=== PATIENT | male | born 1975 | race Asian ===

== ENCOUNTER 2017-01-15 14:49 | Observation (INO) | payer OTHER ==
[~2017-01-15] VITALS: Ht 180.3 cm; Wt 82.6 kg
--- NOTE | 2017-01-15 14:55 | NUR ---
PT IN BR WHEN CALLED TO TRIAGE
--- NOTE | 2017-01-15 15:08 | ED GI/GU/ABDOMINAL COMPLAINT ---
History of Present Illness General Chief Complaint: General Adult Stated Complaint: PER GIRLFRIEND, "HE ISNT FEELING WELL" Source: patient, family Exam Limitations: clinical condition Allergies Coded Allergies: No Known Allergies (01/15/17) Reconcile Medications No Known Home Medications Triage Note: PT C/O ABDOMINAL PAIN WITH N/V ALL MORNING. PT STATES HE THOUGHT IT MAY BE FOOD POISONING BUT HE CAN'T THINK OF ANYTHING FUNNY THAT HE ATE. Triage Nurses Notes Reviewed? yes Onset: Abrupt Duration: hour(s):, constant, continues in ED Timing: recent history Quality/Severity: moderate, sharpness, severe Location: epigastric Radiation: no radiation No Modifying Factors: none HPI: 41-year-old male comes into emergency room with sudden onset nausea vomiting and abdominal pain that began this morning. No diarrhea at this time. Symptoms were sudden onset. Patient has vomited over 9 times. Patient not able to keep any liquids down. Sweaty. Chills. Denies any prior history of this. No other sick contacts. Patient ate out with family members last night. No one else is sick. They had food and then he also had Basilio's at one point. (ZHEN VANN) Vital Signs & Intake/Output Vital Signs & Intake/Output Vital Signs Date Time Temp Pulse Resp B/P Pulse O2 O2 Flow FiO2 Ox Delivery Rate 01/15 1704 98.3 95 16 143/63 94 Room Air 01/15 1647 Room Air 01/15 1459 98.2 89 20 173/89 99 Room Air Past History Travel History Traveled to [place] past 21 day No Medical History Any Pertinent Medical History? none Surgical History Surgical History: non-contributory Psychosocial History What is your primary language Prydeinig Tobacco Use: Current Daily Use Daily Tobacco Use Amount/Type: => 5 Cigarettes daily ETOH Use: occasional use Illicit Drug Use: denies illicit drug use Family History Hx Contributory? No (ZHEN VANN) Review of Systems Review of Systems Constitutional: Reports: see HPI. EENTM: Reports: no symptoms. Respiratory: Reports: no symptoms. Cardiovascular: Reports: no symptoms. GI: Reports: see HPI. Genitourinary: Reports: no symptoms. Musculoskeletal: Reports: no symptoms. Skin: Reports: no symptoms. Neurological/Psychological: Reports: no symptoms. Hematologic/Endocrine: Reports: no symptoms. Immunologic/Allergic: Reports: no symptoms. All Other Systems: Reviewed and Negative (ZHEN VANN) Physical Exam Physical Exam General Appearance: moderate distress, actively vomiting Head: atraumatic, normal appearance Eyes: Bilateral: normal appearance, EOMI. Ears, Nose, Throat, Mouth: hearing grossly normal, moist mucous membrane Neck: normal inspection Respiratory: normal breath sounds, no respiratory distress Cardiovascular: regular rate/rhythm Gastrointestinal: soft, tenderness Back: normal inspection Extremities: normal range of motion Neurologic/Psych: awake, alert, oriented x 3, normal gait, normal mood/affect Skin: intact, normal color Core Measures ACS in differential dx? No Severe Sepsis Present: No Septic Shock Present: No (ZHEN VANN) Progress Differential Diagnosis: appendicitis, biliary colic, bowel obstruction, cholecystitis, diverticulitis, gastritis, hepatitis, pancreatitis, peptic ulcer, PUD/GERD, perforated viscous, SBO, ureterolithiasis, urinary retention, urethritis, UTI/pyelo Diagnostic Imaging: Viewed by Me: Ultrasound. Discussed w/RAD: Ultrasound. Radiology Impression: EXAM TYPE: US - US-LIMITED ABDOMEN EXAMINATION: US ABDOMEN LIMITED CLINICAL INFORMATION: Abdominal pain and vomiting. COMPARISON: None TECHNIQUE: Real-time imaging of the right upper quadrant abdominal viscera. FINDINGS: PANCREAS: Visualized portions are unremarkable, with partial bowel gas obscuration. LIVER: Normal. The liver demonstrates normal size, contour and echogenicity. No focal lesion or intrahepatic biliary duct dilatation. GALLBLADDER: Multiple shadowing immobile gallstones are demonstrated. No significant gallbladder wall thickening or pericholecystic fluid. There is tenderness in the area of the gallbladder upon sonography. COMMON BILE DUCT: Mildly prominent in caliber measuring 0.7 cm in diameter. RIGHT KIDNEY: There are a couple subcentimeter echogenic calculi within the right kidney. No hydronephrosis. There is a 0.9 cm cyst in the lower pole of the right kidney without suspicious features (favor Bosniak 1). The kidney measures 10.5 cm in maximum dimension. FREE FLUID: None. IMPRESSION: 1. Cholelithiasis. No evidence of significant gallbladder wall thickening. However, given tenderness in the area of gallbladder upon sonography, close clinical correlation for symptoms of cholecystitis is recommended. Consider hepatobiliary nuclear scintigraphy for further evaluation as clinically warranted. 2. Mild extrahepatic biliary ductal dilatation at 0.7 cm. 3. Subcentimeter right renal calculi without hydronephrosis. DICTATED BY: JUDITH PHILLIPS MD DATE/TIME DICTATED:01/15/17 / 1623 DEPOSIT REFUND CLERK:PRAVEEN Initial ED EKG: none (ZHEN VANN) Plan of Care: Orders Procedure Date/time Status BASIC ELECTROLYTES PLUS BUN&CR 01/17 0600 Active Nothing by Mouth 01/16 B Active PROTHROMBIN TIME 01/16 06 Active CBC WITHOUT DIFFERENTIAL 01/[address] in observation 01/15 182 Active Pathway - chart 01/15 1815 Active Patient Data 01/15 1815 Active Code Status 01/15 181 Active Intake & Output 01/15 1512 Active LIPASE 01/15 1507 Complete COMPREHENSIVE METABOLIC PANEL 01/15 1507 Complete CBC WITHOUT DIFFERENTIAL 01/15 1507 Complete AMYLASE 01/15 1507 Complete VTE Mechanical Prophylaxis 01/15 UNK Active Vital Signs 01/15 UNK Active Activity/Ambulation 01/15 UNK Active Current Medications Sig/Sandy Start time Last Medication Dose Stop Time Status Admin Acetaminophen 1,000 MG Q6P PRN 01/15 181 AC (Ofirmev) N/A 1 UNIT (No Carrier) Dextrose/Sodium 1,000 ML .Q10H 01/15 181 AC Chloride (D5-Normal Saline) Morphine Sulfate 2 MG Q2P PRN 01/15 1815 AC (Morphine) Ondansetron HCl 4 MG Q8P PRN 01/15 181 AC (Zofran) Laboratory Tests 01/15/17 1517: Anion Gap 12, Estimated GFR > 60, BUN/Creatinine Ratio 18.6, Glucose 137 H, Calcium 9.6, Total Bilirubin 0.6, AST 24, ALT 53, Alkaline Phosphatase 68, Total Protein 6.7, Albumin 3.6, Globulin 3.1, Albumin/Globulin Ratio 1.2, Amylase 56, Lipase 136, CBC w Diff NO MAN DIFF REQ, RBC 4.94, MCV 87.2, MCH 28.8, RDW 12.7, MPV 7.2 L, Gran % 88.2 H, Lymphocytes % 8.7 L, Monocytes % 2.7, Eosinophils % 0.1, Basophils % 0.3, Absolute Granulocytes 10.4 H, Absolute Lymphocytes 1.0 L , Absolute Monocytes 0.3, Absolute Eosinophils 0, Absolute Basophils 0, PUBS MCHC 33.0 Departure Departure Disposition: STILL A PATIENT Condition: Stable Clinical Impression Primary Impression: Cholecystitis Departure Forms: Customer Survey General Discharge Information Prescriptions: Current Visit Scripts No Known Home Medications Admission Note Documentation of Exam: Documentation of any treatments & extenuating circumstances including Concerns Regarding Discharge (functional status, medication knowledge or non-compliance, living conditions, etc.) that warrant an admission rather than observation: Patient has positive Brito's. Small white count. Likely early cholecystitis. Symptomatic gallstones and still having pain after IV narcotics. Patient will be admitted for surgery tomorrow to remove gallbladder. Patient will require IV antibiotics. IV fluids. IV pain control. Observation Note Spoke With: FRANK TURNER MD Physician Advisor Notified: MARTY GUERRERO DO Place Patient In: Non-ED OBS Care Area Rationale for Observation: My rational for observation is as follows . Patient has positive Brito's. Small white count. Likely early cholecystitis. Symptomatic gallstones and still having pain after IV narcotics. Patient will be admitted for surgery tomorrow to remove gallbladder. Patient will require IV antibiotics. IV fluids. IV pain control. Patient may go home tomorrow after surgery if there are no complications. (ZHEN VANN) PA/CUSTOM SHOP WORKER Co-Sign Statement Statement: ED Attending supervision documentation- [] I saw and evaluated the patient. I have also reviewed all the pertinent lab results and diagnostic results. I agree with the findings and the plan of care as documented in the PA's/CUSTOM SHOP WORKER's documentation. [x] I have reviewed the ED Record and agree with the PA's/CUSTOM SHOP WORKER's documentation. [] Additions or exceptions (if any) to the PAs/CUSTOM SHOP WORKER's note and plan are summarized below: [] (KENDALL SWEENEY,MARTY Lim)
--- NOTE | 2017-01-15 15:09 | NUR ---
RECIEVED TO ROOM 18. PT VOMITING. ZHEN DANGELO IN TO SEE PT. [place] IVF BOLUS STARTED
--- NOTE | 2017-01-15 15:13 | NUR ---
REPORTS FLU + ABOUT 2 WEEKS AGO. ATE [facility] LAST NIGHT AND HAS BEEN VOMITING SINCE THIS AM, NO BLOOD NOTED TO [facility]ES[facility]
--- NOTE | 2017-01-15 15:22 | NUR ---
BLOOD DRAWN AND SENT TO LAB. SST,LAV,BANUELOS,BLUE
[2017-01-15 15:28] LABS: ABSOLUTE BASOPHIL COUNT 0 /CUMM (0.0-0.2); ABSOLUTE EOSINOPHIL COUNT 0 /CUMM (0.0-0.7); ABSOLUTE GRANULOCYTE CT 10.4 /CUMM (1.4-6.5); ABSOLUTE MONOCYTE COUNT 0.3 /CUMM (0.10-0.60); BASOPHIL % 0.3 % (0.0-2.0); EOSINOPHIL % 0.1 % (0-5); GRANULOCYTE % 88.2 % (42.2-75.2); MEAN CORPUSCULAR HGB 28.8 PG (27.0-31.0); MEAN CORPUSCULAR VOLUME 87.2 FL (80.0-94.0); MEAN PLATELET VOLUME 7.2 FL (7.4-10.4); PLATELET COUNT 292 /CUMM (130-400); RBC DISTRIBUTION WIDTH 12.7 % (11.5-14.5); RED BLOOD CELL CT 4.94 /CUMM (4.70-6.10)
--- NOTE | 2017-01-15 15:34 | NUR ---
MED WITH BENTYL IM ORDERED, BLANKET GIVEN FOR COMFORT. FAMILY AT BEDSIDE.
[2017-01-15 15:47] LABS: WHITE BLOOD CELL COUNT 11.8 /CUMM (4.8-10.8)
--- NOTE | 2017-01-15 16:35 | ULTRASOUND REPORT ---
EXAMINATION: US ABDOMEN LIMITED CLINICAL INFORMATION: Abdominal pain and vomiting. COMPARISON: None TECHNIQUE: Real-time imaging of the right upper quadrant abdominal viscera. FINDINGS: PANCREAS: Visualized portions are unremarkable, with partial bowel gas obscuration. LIVER: Normal. The liver demonstrates normal size, contour and echogenicity. No focal lesion or intrahepatic biliary duct dilatation. GALLBLADDER: Multiple shadowing immobile gallstones are demonstrated. No significant gallbladder wall thickening or pericholecystic fluid. There is tenderness in the area of the gallbladder upon sonography. COMMON BILE DUCT: Mildly prominent in caliber measuring 0.7 cm in diameter. RIGHT KIDNEY: There are a couple subcentimeter echogenic calculi within the right kidney. No hydronephrosis. There is a 0.9 cm cyst in the lower pole of the right kidney without suspicious features (favor Bosniak 1). The kidney measures 10.5 cm in maximum dimension. FREE FLUID: None. IMPRESSION: 1. Cholelithiasis. No evidence of significant gallbladder wall thickening. However, given tenderness in the area of gallbladder upon sonography, close clinical correlation for symptoms of cholecystitis is recommended. Consider hepatobiliary nuclear scintigraphy for further evaluation as clinically warranted. 2. Mild extrahepatic biliary ductal dilatation at 0.7 cm. 3. Subcentimeter right renal calculi without hydronephrosis.
--- NOTE | 2017-01-15 16:43 | NUR ---
NO FURTHER VOMITING. PT STATES HE FEELS WEAK. SECOND LITER OF IVF BOLUS STARTED. PT LAYING QUIETLY WITH EYES CLOSED ON STRETCHER
--- NOTE | 2017-01-15 17:03 | NUR ---
PT COMPLAINING OF DIFFUSE ABDOMINAL PAIN 10 OUT OF 10. GIVEN MORHINE 4MG IVP
--- NOTE | 2017-01-15 18:17 | Admission Core Measures ---
Admission Lab Results I reviewed the following labs: Laboratory Tests 01/15 1517 Chemistry Sodium (137 - 145 mmol/L) 141 Potassium (3.5 - 5.1 mmol/L) 3.7 Chloride (98 - 107 mmol/L) 103 Carbon Dioxide (22 - 30 mmol/L) 26 Anion Gap (5 - 16) 12 BUN (9 - 20 mg/dL) 13 Creatinine (0.7 - 1.2 mg/dL) 0.7 Estimated GFR (>60 ml/min) > 60 BUN/Creatinine Ratio (7 - 25 %) 18.6 Glucose (65 - 99 mg/dL) 137 H Calcium (8.4 - 10.2 mg/dL) 9.6 Total Bilirubin (0.2 - 1.3 mg/dL) 0.6 AST (17 - 59 U/L) 24 ALT (21 - 72 U/L) 53 Alkaline Phosphatase (< 127 U/L) 68 Total Protein (6.3 - 8.2 g/dL) 6.7 Albumin (3.5 - 5.0 g/dL) 3.6 Globulin (1.9 - 4.2 gm/dL) 3.1 Albumin/Globulin Ratio (1.1 - 2.2 %) 1.2 Amylase (30 - 110 U/L) 56 Lipase (23 - 300 U/L) 136 Hematology CBC w Diff NO MAN DIFF REQ WBC (4.8 - 10.8 /CUMM) 11.8 H RBC (4.70 - 6.10 /CUMM) 4.94 Hgb (14.0 - 18.0 G/DL) 14.2 Hct (42 - 52 %) 43.0 MCV (80.0 - 94.0 FL) 87.2 MCH (27.0 - 31.0 PG) 28.8 RDW (11.5 - 14.5 %) 12.7 Plt Count (130 - 400 /CUMM) 292 MPV (7.4 - 10.4 FL) 7.2 L Gran % (42.2 - 75.2 %) 88.2 H Lymphocytes % (20.5 - 51.1 %) 8.7 L Monocytes % (1.7 - 9.3 %) 2.7 Eosinophils % (0 - 5 %) 0.1 Basophils % (0.0 - 2.0 %) 0.3 Absolute Granulocytes (1.4 - 6.5 /CUMM) 10.4 H Absolute Lymphocytes (1.2 - 3.4 /CUMM) 1.0 L Absolute Monocytes (0.10 - 0.60 /CUMM) 0.3 Absolute Eosinophils (0.0 - 0.7 /CUMM) 0 Absolute Basophils (0.0 - 0.2 /CUMM) 0 PUBS MCHC (33.0 - 37.0 G/DL) 33.0 Admission Meds I reviewed the following Meds: Current Medications Sig/Sandy Start time Last Medication Dose Stop Time Status Admin Acetaminophen 1,000 MG Q6P PRN 01/15 181 UNVr (Ofirmev) N/A 1 UNIT (No Carrier) Ampicillin Sodium/ 3,000 MG Q6 01/15 181 UNVr Sulbactam Sodium (Unasyn) Sodium Chloride 100 ML (Normal Saline 0.9%) Dextrose/Sodium 1,000 ML .Q10H 01/15 181 UNVr Chloride (D5-Normal Saline) Morphine Sulfate 2 MG Q2P PRN 01/15 181 UNVr (Morphine) Ondansetron HCl 4 MG Q8P PRN 01/15 181 UNVr (Zofran) Acute Coronary Syndrome Inclusion Criteria ACS Diagnosis No Inpatient Core Measures LDL Reminder: If No, please order W/I first 24hr of stay Congestive Heart Failure Inclusion Criteria CHF Diagnosis No Cerebrovascular accident Inclusion Criteria CVA/TIA Diagnosis No Inpatient Core Measures Bedside Swallow Eval Reminder: If BSE failed, place ST order Antithrombotic Reminder: Order Antithrombotic Medication by end of day 2 Antithrombotic Reminder: Document Reason Antithrombotic Not ordered by end of day 2 AFIB/Flutter Reminder: If Present, add to problem list AFIB/Flutter Reminder: Order Anticoag Medication for pts with AFIB/Flutter Atherosclerosis Reminder: If Present, add to problem list LDL Reminder: If No, please order W/I first 24hr of stay PT Order Reminder: If No, please order Venous thromboembolism Inpatient Core Measures VTE Risk Factors: Age > 40 VTE Prophylaxis Ordered Inpt Mech & Pharm No Mech VTE prophylaxis d/t No contraindications No VTE Pharm Prophylaxis d/t No contraindications Inclusion Criteria - Per Current guidelines, there needs to be overlap - treatment for the first 5 days of Warfarin therapy. - Parenteral Anticoagulation (IV or SC) needs to be - given along with Warfarin therapy. VTE Diagnosis No VTE Type NONE VTE Confirmed by (Test) NONE Problem List As ranked by this Provider includes Assessment & Plan 1. Cholelithiasis HOME MEDS Home Med List No Known Home Medications
--- NOTE | 2017-01-15 18:20 | History & Physical Pre-Op ---
LUIS ENRIQUE DAVE 01/15/17 1818: General Information and HPI MD Statement: I have seen and personally examined AUNG PICKENS and documented this H&P. The patient is a 41 year old M who presented with a patient stated chief complaint of [EPIGASTRIC, RIGHT UPPER QUADRANT PAIN]. Source of Information: patient, family History of Present Illness: Patient presents to emergency department with complaints of acute onset of abdominal pain primarily in the epigastric region and right upper quadrant. This discomfort was accompanied by several bouts of emesis. This is his first experience with these symptoms. He did mention that two weeks ago he had the flu. He denies diarrhea. He denies chest pain. Allergies/Medications Allergies: Coded Allergies: No Known Allergies (01/15/17) Home Med list No Known Home Medications Past History Surgical History Pertinent Surgical History: non-contributory Past Family/Social History Psychosocial History ETOH Use: occasional use Illicit Drug Use: denies illicit drug use Exam & Diagnostic Data Last 24 Hrs of Vital Signs/I&O Vital Signs Date Time Temp Pulse Resp B/P Pulse O2 O2 Flow FiO2 Ox Delivery Rate 01/15 1704 98.3 95 16 143/63 94 Room Air 01/15 1647 Room Air 01/15 1459 98.2 89 20 173/89 99 Room Air Intake & Output 01/15 1600 01/15 0800 01/15 0000 Intake Total 1000 Output Total Balance 1000 Intake, IV 1000 Patient 185 lb Weight Physical Exam: General Appearance: no acute distress, not currently vomitting Head: atraumatic, normal appearance Eyes: no scleral icteric Bilateral: normal appearance, EOMI. Ears, Nose, Throat, Mouth: hearing grossly normal, moist mucous membrane Neck: normal inspection Respiratory: normal breath sounds, no respiratory distress Cardiovascular: regular rate/rhythm Gastrointestinal: soft, tenderness with deep palpation epigastric and right upper quadrant Back: normal inspection Extremities: normal range of motion Neurologic/Psych: awake, alert, oriented x 3, normal gait, normal mood/affect Skin: intact, normal color, no jaundice Last 24 Hrs of Labs/Antolin: Laboratory Tests 01/15/17 1517: Anion Gap 12, Estimated GFR > 60, BUN/Creatinine Ratio 18.6, Glucose 137 H, Calcium 9.6, Total Bilirubin 0.6, AST 24, ALT 53, Alkaline Phosphatase 68, Total Protein 6.7, Albumin 3.6, Globulin 3.1, Albumin/Globulin Ratio 1.2, Amylase 56, Lipase 136, CBC w Diff NO MAN DIFF REQ, RBC 4.94, MCV 87.2, MCH 28.8, RDW 12.7, MPV 7.2 L, Gran % 88.2 H, Lymphocytes % 8.7 L, Monocytes % 2.7, Eosinophils % 0.1, Basophils % 0.3, Absolute Granulocytes 10.4 H, Absolute Lymphocytes 1.0 L , Absolute Monocytes 0.3, Absolute Eosinophils 0, Absolute Basophils 0, PUBS MCHC 33.0 Diagnostic Data Other Results PATIENT: AUNG PICKENS PRESENT AGE: 41 PATIENT ACCOUNT NO: [id number] : 74 LOCATION: [facility] ORDERING PHYSICIAN: ZHEN DANGELO SERVICE DATE: 01/15/17 EXAM TYPE: US - US-LIMITED ABDOMEN EXAMINATION: US ABDOMEN LIMITED CLINICAL INFORMATION: Abdominal pain and vomiting. COMPARISON: None TECHNIQUE: Real-time imaging of the right upper quadrant abdominal viscera. FINDINGS: PANCREAS: Visualized portions are unremarkable, with partial bowel gas obscuration. LIVER: Normal. The liver demonstrates normal size, contour and echogenicity. No focal lesion or intrahepatic biliary duct dilatation. GALLBLADDER: Multiple shadowing immobile gallstones are demonstrated. No significant gallbladder wall thickening or pericholecystic fluid. There is tenderness in the area of the gallbladder upon sonography. COMMON BILE DUCT: Mildly prominent in caliber measuring 0.7 cm in diameter. RIGHT KIDNEY: There are a couple subcentimeter echogenic calculi within the right kidney. No hydronephrosis. There is a 0.9 cm cyst in the lower pole of the right kidney without suspicious features (favor Bosniak 1). The kidney measures 10.5 cm in maximum dimension. FREE FLUID: None. IMPRESSION: 1. Cholelithiasis. No evidence of significant gallbladder wall thickening. However, given tenderness in the area of gallbladder upon sonography, close clinical correlation for symptoms of cholecystitis is recommended. Consider hepatobiliary nuclear scintigraphy for further evaluation as clinically warranted. 2. Mild extrahepatic biliary ductal dilatation at 0.7 cm. 3. Subcentimeter right renal calculi without hydronephrosis. DICTATED BY: JUDITH PHILLIPS MD DATE/TIME DICTATED:01/15/171622 [employer] SALES:PRAVEEN DATE/TIME TRANSCRIBED:01/15/17 / 1623 CONFIDENTIAL, DO NOT COPY WITHOUT APPROPRIATE AUTHORIZATION. <Electronically signed in Other Vendor System> SIGNED BY: JUDITH PHILLIPS MD 01/15/17 7751 Assessment/Plan Assessment/Plan: THis is a 41 year old male presenting to ER with complaints of acute onset abdominal pain with nausea. Abdominal ultrasound confirmed presence of multiple gall stones. PMH is negative. PSH is negative -Admit to surgical service -Unasyn 3 g to be given q6 starting now -IV ofirmev/morphine for pain -F/U repeat labs in am -NPO -D5 ns @ 100 cc per hour -EKG -Discussed case with Dr. Fletcher, admit to surgery, plan for OR in am As Ranked By This Provider Problem List: 1. Cholelithiasis MARC DIEZQUINTENMARIA M 01/16/17 0824: Attending MD Review Statement Attending Statement Attending MD Statement: examined this patient, discuss w/resident/PA/CAN LINE EXAMINER, agreed w/resident/PA/CAN LINE EXAMINER, discussed with family, reviewed EMR data (avail), reviewed images Attending Assessment/Plan: Patient with acute onset of abdominal pain, N/V. RUQ Jani + gallstones, + Brito' s sign. Abd- + epigastric /RUQ tenderness. Will admit for acute cholecystitis, NPo/IV Abx, painc ontrol, plan for a Lap [place]. Discussed in detail with patient and family.
--- NOTE | 2017-01-15 18:32 | Patient Discharge Instructions ---
Discharge Instructions General Discharge Information You were seen/treated for: Abdominal pain, gall stones You had these procedures: laparoscopic cholecystectomy Watch for these problems: increasing abdominal pain, inability to urinate, inability to move bowels, increasing nausea and vomitting. Fever >101.5. Do not soak the wound: Yes No bath, but you may shower: Yes Other wound care: Keep wound clean and dry Diet Continue normal diet: Yes Recommended Diet: Low Fat Additional DIET Information: Advance as tolerated Activity Full Activity/No Limits: No Activity Self Limited: Yes Pounds, do NOT lift more than: 10 Acute Coronary Syndrome Inclusion Criteria At DC or during hospital stay patient has or had the following: ACS DIAGNOSIS No Discharge Core Measures Meds if any: Prescribed or Continued at Discharge Meds if any: NOT Prescribed or Continued at Discharge Congestive Heart Failure Inclusion Criteria At DC or during hospital stay patient has or had the following: CHF DIAGNOSIS No Discharge Core Measures Meds if any: Prescribed or Continued at Discharge Meds if any: NOT Prescribed or Continued at Discharge Cerebrovascular accident Inclusion Criteria At DC or during hospital stay patient has or had the following: CVA/TIA Diagnosis No Discharge Core Measures Meds if any: Prescribed or Continued at Discharge Meds if any: NOT Prescribed or Continued at Discharge Venous thromboembolism Inclusion Criteria VTE Diagnosis No VTE Type NONE VTE Confirmed by (Test) NONE Discharge Core Measures - Per Current guidelines, there needs to be overlap - treatment for the first 5 days of Warfarin therapy. - If discharged on Warfarin prior to 5 days of - overlap therapy, the patient will need to be - assessed for post discharge needs including - *Post discharge parental anticoagulation - *Warfarin and/or parental anticoagulation education - *Follow up date to check INR post discharge At least 5 days overlap therapy as Inpatient No Meds if any: Prescribed or Continued at Discharge Note: Overlap Therapy is Warfarin and Anticoagulant Meds if any: NOT Prescribed or Continued at Discharge
--- NOTE | 2017-01-15 18:47 | NUR ---
PT HAS BED ASSIGNMENT 230-1
--- NOTE | 2017-01-15 18:58 | NUR ---
PT RESTING QUIETLY. STATES PAIN IS AT A 2 OUT OF 10. PT VERBALIZED PLAN FOR SURGERY TOMORROW. PT INFORMED HE IS NPO.
[2017-01-15 19:31] VITALS: BP 158/70
--- NOTE | 2017-01-15 19:49 | NUR ---
ADMISSION NOTE PT ARRIVED TO FLOOR AT THIS TIME A/O X 3, ON RA VSS, C/O WEAKNESS, HAND GRASPS WEAK, WEAKER ON RIGHT SIDE, CALL PLACED TO SURGICAL PA, NPO, MOUTH CARE PROVIDED, ABD SOFTLY DISTENDED, LBM THIS MORNING PER PATIENT, PT DENIES NAUSEA AT THIS TIME, +FLATUS +BS, STATES PAIN TO ABD IS 2/10. IVF STARTED. ORIENTED TO ROOM AND USE OF CALL ARGUETA WILL MONITOR.
--- NOTE | 2017-01-15 21:22 | NUR ---
PT REPORTS GENERALIZED WEAKNESS, BUT STATES THAT HE IS WEAKER ON THE RIGHT SIDE, HAND GRASPS WEAKER ON RIGHT SIDE NO VISUAL CHANGES VSS CALL TO SURGICAL PA TO MAKE AWARE
[2017-01-15 23:09] VITALS: BP 140/70
[2017-01-16 01:00] LABS: ABSOLUTE BASOPHIL COUNT 0 /CUMM (0.0-0.2); ABSOLUTE EOSINOPHIL COUNT 0 /CUMM (0.0-0.7); ABSOLUTE LYMPH COUNT 2.1 /CUMM (1.2-3.4); WHITE BLOOD CELL COUNT 13.6 /CUMM (4.8-10.8)
[2017-01-16 01:03] LABS: ABSOLUTE GRANULOCYTE CT 10.5 /CUMM (1.4-6.5); BASOPHIL % 0.2 % (0.0-2.0); EOSINOPHIL % 0.2 % (0-5); GRANULOCYTE % 76.9 % (42.2-75.2); MEAN CORPUSCULAR HGB 29.4 PG (27.0-31.0); MEAN CORPUSCULAR HGB CONC 33.8 G/DL (33.0-37.0); MEAN CORPUSCULAR VOLUME 86.8 FL (80.0-94.0); MEAN PLATELET VOLUME 7.3 FL (7.4-10.4); PLATELET COUNT 271 /CUMM (130-400); RBC DISTRIBUTION WIDTH 12.8 % (11.5-14.5); RED BLOOD CELL CT 4.21 /CUMM (4.70-6.10)
[2017-01-16 01:05] LABS: HEMATOCRIT 36.5 % (42-52)
--- NOTE | 2017-01-16 01:40 | RADIOLOGY REPORT ---
EXAMINATION: XR PORTABLE CHEST CLINICAL INFORMATION: Preop COMPARISON: None TECHNIQUE: Portable AP view of the chest was obtained. 1:00 AM FINDINGS: No significant abnormality is noted involving the heart, lungs, mediastinum, bony thorax or soft tissues. IMPRESSION: Unremarkable examination.
[2017-01-16 06:02] VITALS: BP 140/60
--- NOTE | 2017-01-16 08:24 | Operative Report ---
Operative/Inv Procedure Report Surgery Date: 01/16/17 Name of Procedure: Laparoscopic Cholecystectomy Pre-Operative Diagnosis: Acute Cholecystitis Post-Operative Diagnosis: Same Estimated Blood Loss: less than 50ml Surgeon/Rewinder: MARIA M TRAN DO Anesthesia: general endotracheal tube IV Fluids: 1200 cc Drains: none Specimens: gallbladder Complications: none Condition: stable Operative Indication: This is a 41-year-old male that presented to the emergency room with acute onset abdominal pain, nausea, and vomiting. After appropriate workup was completed in the emergency room the patient was diagnosed with acute cholecystitis. A laparoscopic cholecystectomy was discussed in detail. All risks including but not limited to bleeding, infection, bile leak, and injury to surrounding duct/ bowel were discussed in detail. The patient understood everything and decided to proceed. Operative/Procedure Note Note: The patient was brought to the operating room and placed on the operating room table in supine position. Venodyne stockings were placed and adequate general endotracheal anesthesia was obtained. The patient was prepped and draped in standard surgical fashion. We began the procedure by making a 2 cm transverse incision in the infraumbilical crease. The incision was carried down to the fascia, once the fascia was clearly visualized it was picked up between 2 bhavna clamps. The fascia was divided in the midline and once we entered the peritoneum 2 stay 0 Vicryl sutures were placed on each side. A 12 mm blunt port was inserted and the abdominal cavity was insufflated to 15 mmHg. A 10 mm 30 laparoscope was introduced and upon initial examination no obvious gross pathology was seen. We did note a distended/hyperemic gallbladder in the right upper quadrant. Accessory trocars were placed, all 5 mm, one in the epigastrium and 2 in the right upper quadrant (one in the midclavicular line and one in the anterior axillary line, both 2 fingerbreadths below the costal margin). Omental adhesions to the gallbladder were taken down using blunt dissection and electrocautery. The gallbladder was grasped with the lateralmost trocar and retracted up over the liver. Using the other 2 accessory trocars the infundibulum was grasped and the peritoneum was lysed using blunt dissection and using hook electrocautery. The cystic duct and cystic artery were visualized. The common bile duct was visualized and it was away from our area of dissection. The cystic duct and artery were skeletonized and divided between clips, 3 clips to stay and one clip on the gallbladder side for the duct and 2 clips to stay and one clip on the gallbladder side for the artery. The gallbladder was dissected off the liver bed using hook electrocautery maintaining hemostasis. Prior to completely removing the gallbladder off the liver bed we examined the area of dissection no obvious bile leak or bleeding was noted, the clips appeared to be in good position. The gallbladder was completely detached from the liver bed. We switched to a 5 mm laparoscope and a 10 mm Endobag was introduced through the umbilical trocar site. The gallbladder was placed in the bag and removed through the umbilicus. The abdomen was reinsufflated. We switched back to a 10 mm laparoscope and examined our area of dissection. No obvious bile leak or bleeding was noted. The right upper quadrant was irrigated until clear. All ports were removed under direct visualization, no obvious bleeding was noted. The umbilical trocar site was closed using 0 Vicryl suture. The skin was closed using 4-0 Monocryl. Steri-Strips and dressings were placed. The patient was successfully extubated and transferred to the recovery room in stable condition. The patient tolerated the procedure well with no complications. Findings: Edematous/thick gallbladder wall, Multiple stones
[2017-01-16] MEDS ORDERED: PERCOCET 5-3251 EACH PO (08:26)
--- NOTE | 2017-01-16 08:30 | Surg Short-stay <48hrs Dis Sum ---
See Addendum Visit Information Visit Dates Admission Date: 01/15/17 Discharge Date: 01/16/17 Surgical Short Stay DC Summary Admission Diagnosis: Acute cholecystitis Final Diagnosis: Same Procedure(s): Laparoscopic cholecystectomy Summary/Significant Findings: The patient was admitted on 01/15/2017. On 01/16/2017 the patient was brought to the operating theater where he underwent a laparoscopic cholecystectomy. Postoperatively patient progressed as expected, his pain was under adequate control, and he tolerated diet without nausea. The patient was discharged as an uneventful hospital course. Condition at Discharge: Stable Discharge Disposition: home or self care Discharge instructions provided to patient/family: Yes Post discharge follow-up plan: Call the office to be seen in 2 weeks
[2017-01-16 09:37] VITALS: BP 130/70
== END 2017-01-16 13:59 ==
LOC: ENRESERVTM → ENRESERVDT → ERH 14:49 → ERHI 18:26 → ENPENDDIS 18:26 → 2NA 19:09
PROVIDERS: Nurse Practitioner; Physician Assistant Medical; ADMIT Surgery
DX: K80.10 Calculus of gallbladder with chronic cholecystitis without obstruction (principal)
CPT/HCPCS: 6030; 88304; 93005; 93010; 96361; 96372; 96374; 96375; G0378; J0500; J0690; J2405; J7042